=== PATIENT | female | born 1965 | race Caucasian/White ===

== ENCOUNTER → 2017-01-09 | Outpatient (CLI) | payer BC ==
[2016-07-10 10:06] VITALS: BP 121/73
--- NOTE | 2017-01-09 18:58 | RAD ---
THORACIC SPINE RADIOGRAPHS CLINICAL HISTORY: 51-year-old female with history of thoracic lesion. COMPARISON: None. FINDINGS: 2 views of the thoracic spine were obtained. No acute fracture or malalignment with mild d egenerative change. The cervicothoracic junction is visualized on frontal radiographs only. Consider ing the limitations, vertebral body height and alignment are maintained. IMPRESSION: No compression deformity or malalignment on screening thoracic spine radiographs. Reported By:
--- NOTE | 2017-01-09 19:05 | RAD ---
HISTORY: 51-year-old female with history of thoracic lesion. Study: Three views cervical spine. Comparison: None. Findings: AP and lateral radiographs of the cervical spine demonstrate normal alignment from the craniocervica l junction to the level of C7. multilevel degenerative change with loss of disc space at C5-6 , ant erior osteophytosis and uncovertebral joint hypertrophy. No fracture or malalignment. The central ca nal appears patent without posterior element abnormality. No prevertebral soft tissue swelling can be identified. The odontoid appears intact. The lateral masses of C1 align with the body of C2. IMPRESSION: 1. Mild multilevel degenerative change without fracture or malalignment. Reported By:
== END ==
LOC: RAD 15:32
PROVIDERS: ATTEND Internal Medicine
DX: S24.119A Complete lesion at unspecified level of thoracic spinal cord, initial encounter (principal)
CPT/HCPCS: 72040; 72072

== ENCOUNTER → 2017-01-16 | Outpatient (CLI) | payer BC ==
[2016-07-10 10:06] VITALS: BP 121/73
--- NOTE | 2017-01-16 15:49 | MRI ---
HISTORY: Paresthesias of skin, mid back pain Study: MRI thoracic spine without contrast Comparison: Radiograph 01/09/2017 Technique: Multiplanar multi-sequence MRI of the thoracic spine was obtained with standard [facility] protocol. Findings: The thoracic spine demonstrates normal alignment. No abnormal cord or marrow signal identified. The re are some scattered Tarlov cyst noted bilaterally. Probable hemangioma within the T4 vertebral bod y. Vertebral body heights are preserved. There is multilevel disc desiccation and spondylosis. There is a prominent posterior osteophyte complex protruding centrally at T11-T12 causing effacement of t he ventral thecal sac and dorsal displacement of the cord without evidence of compression or edema w ithin the cord itself. No spinal or foraminal stenosis identified. IMPRESSION: 1. Thoracic spondylosis most prominent at T11-T12 where there is a posterior osteophyte causing effa cement of the ventral thecal sac and dorsal displacement of the cord. There is no evidence of cord e dana or compression. No significant spinal or foraminal stenosis identified. Reported By:
--- NOTE | 2017-01-20 14:39 | MRI ---
HISTORY: Neck pain and cervical radiculopathy. Noncontrast MRI examination of the cervical spine. Technique: Sagittal T1, sagittal T2, axial T2 weighted images were obtained. Findings: Alignment of the cervical spine is maintained. There is moderate spondylosis and facet DJD seen from C3-C7 with multilevel disc osteophyte complexes and diffuse cervical disc desiccation. Th ere is no evidence for an acute fracture or subluxation. No aggressive bone marrow lesion is seen. T here is no evidence for cerebral tonsillar ectopia. The posterior elements appear diffusely intact. There is no evidence for cord expansion, cord edema, or abnormal cord signal. No intrathecal mass le sions or intrathecal hemorrhage is seen. There are bilateral T2 intense cystic lesions measuring rou ghly 7-8 millimeters seen emanating from the nerve roots at the level of C7-T1 and T1-T2 which most likely reflect benign thoracic paraspinal cysts. C2 -- C3: No significant disc pathology or foraminal/spinal canal stenosis. C3 -- C4: No significant disc pathology or foraminal/spinal canal stenosis. C4 -- C5: Broad-based, posterior, disc osteophyte complex which combines with mild facet DJD to crea te mild central spinal canal stenosis and mild bilateral foraminal narrowing. C5 -- C6: Broad-based, posterior, disc osteophyte complex which combines with mild facet DJD to crea te mild central spinal canal stenosis and mild bilateral foraminal narrowing. C6 -- C7: Broad-based, posterior, disc osteophyte complex which combines with mild facet DJD to crea te mild central spinal canal stenosis and mild bilateral foraminal narrowing. C7 -- T1: No significant disc pathology or foraminal/spinal canal stenosis. IMPRESSION: Mild cervical spondylotic change with C4-C7 central disc osteophyte complexes and facet DJD which cr eates mild foraminal and spinal canal narrowing at these levels, as detailed above. No evidence for cervical cord myelomalacia, however. Bilateral T2 intense cystic lesions measuring roughly 7-8 raul meters seen emanating from the nerve roots at the level of C7-T1 and T1-T2 which most likely reflect benign thoracic paraspinal cysts. Reported By:
== END ==
LOC: RAD 12:36
PROVIDERS: ATTEND Internal Medicine
DX: M54.2 Cervicalgia (principal); S24.119A Complete lesion at unspecified level of thoracic spinal cord, initial encounter; R20.2 Paresthesia of skin; M43.04 Spondylolysis, thoracic region; M50.321 Other cervical disc degeneration at C4-C5 level; M50.322 Other cervical disc degeneration at C5-C6 level; M50.323 Other cervical disc degeneration at C6-C7 level
CPT/HCPCS: 72141; 72146

== ENCOUNTER 2017-02-24 18:46 | Observation (INO) | payer BC ==
[2017-02-24 19:04] VITALS: BMI 27.4
--- NOTE | 2017-02-24 19:12 | DR.GENAD ---
HPI - PCP Primary Care Physician: vicky - HPI Comment HPI Comment: EPISODE OF HEART FLUTTER AT HOME THAT CAUSE PATIENT TO BE WEAK AND DIZZY AND HAVE NEAR SYNCOPAL FEELING. GRADUALLY IMPROVE. CHEST PRESSURE LEFT CHEST. HISTORY HYPOTHYROIDISM. MED CURRENTLY ADJUSTING FOR ADEQUATE THERAPEUTIC LEVEL. - Complaint/Symptoms Chief Complaint Doctors Comments: HEART FLUTTER. Chief Complaint:: pt states" my heart fluttering an i get real anxious when it happens. i ffel like it goes bump bump pause it worries me " - Nurses notes reviewed Nurses Notes Review: Yes - Source History Provided: Patient - Mode of Arrival Mode of Arrival: Ambulatory - Timing Onset of Chief Complaint: 02/24/17 Came on: Suddenly - Duration Duration: Since Onset Duration: Hours - Severity Severity: Moderate PMH - PMH Past Medical History: Yes Past Medical History: Hypothyroidism Past Surgical History: Yes Surgical History: Hysterectomy - Family History History of Family Medical Conditions: Yes Family Medical History: Diabetes Mellitus - Social History Alcohol Use: Occasionally Do you use any recreational Drugs:: No Lives With: Family Lives Where: Home - infectious screening In the last 2 months have you had wt loss of >10#?: NO Have you had fever, night sweats or hemotysis?: No Have you traveled outside the country in the last 6 months?: No Isolation: Standard ROS - Review of Systems Constitutional: Weakness, Fatigue. negative: Chills, Diaphoresis, Fever Eyes: No Symptoms Reported. negative: Eye Pain, Discharge ENTM: No Symptoms Reported. negative: Ear Pain, Nose Discharge, Nose Congestion , Throat Pain Respiratoy: Short of Breath. negative: Productive Cough, Non-Productive Cough, Wheezing, Hemoptysis Cardiovascular: Chest Pain, Palpitations. negative: Edema, Syncope Gastrointestinal/Abdominal: Nausea. negative: Abdominal Pain, Constipation, Diarrhea, Vomiting, Food Intolerance Genitourinary: No Symptoms Reported. negative: Dysuria, Frequency, Hematuria Neurological: Weakness, Dizziness. negative: Headache Musculoskeletal: Muscle Pain Integumentary: No Symptoms Reported Hematologic/Lymphatic: No Symptoms Reported Endocrine: No Symptoms Reported All Other Systems: Reviewed and Negative PE - Vital Signs Vitals: Temperature 98 F Pulse Rate 82 Respiratory Rate 20 Blood Pressure 153/74 O2 Sat by Pulse Oximetry 100 - General Limitations: No Limitations General Appearance: Alert - Head Head Exam: Normal Inspection - Eyes Eye exam: Normal Appearance - ENT ENT Exam: Normal External Ear Exam External Ear Exam: Normal External Inspection TM/Canal Exam: Bilateral Normal Nose Exam: Normal Nose Exam Mouth Exam: Normal Inspection Throat Exam: Normal Inspection - Neck Neck Exam: Trachea Midline. negative: Tenderness, Meningismus, Lymphadenopathy - Chest Chest Inspection: Symmetric Chest Wall Rise - Respiratory Respiratory Exam: Normal Lung Sounds Bilat Respiratory Exam: Bilateral Clear to Auscultation - Cardiovascular Cardiovascular Exam: Regular Rate, Normal Rhythm, Normal Heart Sounds - Abdominal Exam Abdominal Exam: Normal Bowel Sounds, Soft. negative: Tenderness - Extremities Extremities Exam: Normal Inspection - Back Back Exam: Normal Inspection - Neurologic Neurological Exam: Alert, Oriented X3, CN II-XII Intact, Normal Gait, Reflexes Normal. negative: Motor Sensory Deficit - Psychiatric Psychiatric Exam: Anxious - Skin Skin Exam: Normal Color MDM - Differential Diagnosis Differential Diagnosis: HEART FLUTTER, HYPOTHYROIDISM Course - Consultation Consultation Comments: DISCUSS PATIENT WITH DR. SPRAGUE. HE WILL ADMIT PATIENT. - Education/Counseling Education/Counseling: Patient, Education Educated On: Diagnosis ROR - Labs Reviewed Laboratory Results Reviewed?: Yes Result Diagrams: 02/25/17 06:05 02/25/17 06:05 Laboratory: WBC 6.5 X10^3/uL (3.6-10.0) 02/24/17 19:18 RBC 4.70 X10^6/uL (3.5-5.4) 02/24/17 19:18 Hgb 14.2 g/dL (12.0-16.0) 02/24/17 19:18 Hct 42.3 % (36.0-47.0) 02/24/17 19:18 MCV 90.0 fL (80.0-100.0) 02/24/17 19:18 MCH 30.2 pg (27.0-34.0) 02/24/17 19:18 MCHC 33.6 g/dL (33.0-35.0) 02/24/17 19:18 RDW 12.1 % (11.6-16.5) 02/24/17 19:18 Plt Count 252 X10^3/uL (150.0-450.0) 02/24/17 19:18 MPV 8.8 fL (7.4-11.0) 02/24/17 19:18 Neut % 42.6 % (42.0-75.0) 02/24/17 19:18 Lymph % 46.5 % (21.0-51.0) 02/24/17 19:18 Mcleod % 8.3 % (0.0-13.0) 02/24/17 19:18 Eos % 1.6 % (0.9-2.9) 02/24/17 19:18 Baso % 1.0 % (0.2-1.0) 02/24/17 19:18 Neut # 2.8 x10^3/uL (2.2-4.8) 02/24/17 19:18 Lymph # 3.0 X10^3/uL (1.3-2.9) H 02/24/17 19:18 Mcleod # 0.5 x10^3/uL (0.3-0.8) 02/24/17 19:18 Eos # 0.1 x10^3/uL (0.0-0.2) 02/24/17 19:18 Baso # 0.1 X10^3/uL (0.0-0.1) 02/24/17 19:18 Absolute Nucleated RBC 0.1 /100WBC 02/24/17 19:18 INR Target Range - 02/24/17 19:18 INR 0.93 (0.8-1.3) 02/24/17 19:18 PTT 28.9 SECONDS (22.9-36.5) 02/24/17 19:18 PTT Comment - 02/24/17 19:18 D-Dimer < 100 ng/mL (0-400) 02/24/17 19:18 Sodium 143 mmol/L (136-145) 02/24/17 19:18 Corrected Sodium TNP 02/24/17 19:18 Potassium 3.7 mmol/L (3.5-5.1) 02/24/17 19:18 Chloride 105 mmol/L (98-107) 02/24/17 19:18 Carbon Dioxide 28.7 mmol/L (21-32) 02/24/17 19:18 BUN 14 mg/dL (7-18) 02/24/17 19:18 Creatinine 0.79 mg/dL (0.55-1.02) 02/24/17 19:18 Est GFR (MDRD) Af Amer > 60 (>60) 02/24/17 19:18 Est GFR (MDRD) Non-Af > 60 (>60) 02/24/17 19:18 Glucose 108 mg/dL (65-99) H 02/24/17 19:18 Calcium 9.2 mg/dL (8.5-10.1) 02/24/17 19:18 Corrected Calcium TNP 02/24/17 19:18 Magnesium 1.9 mg/dL (1.7-2.9) 02/24/17 19:18 Total Bilirubin 0.40 mg/dL (0.2-1.0) 02/24/17 19:18 AST 18 Units/L (15-37) 02/24/17 19:18 ALT 23 Units/L (12-78) 02/24/17 19:18 Alkaline Phosphatase 93 Units/L (46-116) 02/24/17 19:18 Creatine Kinase 59 Units/L (26-192) 02/24/17 19:18 CK-MB (CK-2) < 1.0 ng/mL (0-4.0) 02/24/17 19:18 CK/CKMB % Calc 1.7 % (<4) 02/24/17 19:18 Troponin I < 0.02 ng/mL (0-1.5) 02/24/17 19:18 Total Protein 7.7 g/dL (6.4-8.2) 02/24/17 19:18 Albumin 4.1 g/dL (3.4-5.0) 02/24/17 19:18 Globulin 3.6 g/dL (2.5-4.5) 02/24/17 19:18 Albumin/Globulin Ratio 1.1 Ratio (1.1-2.1) 02/24/17 19:18 TSH 3rd Generation 0.376 uIU/mL (0.358-3.74) 02/24/17 19:18 - XRAY XRAY Interpreted by: Radiologist XRAY Findings: REPORT NOTED - EKG Rhythm: NSR (EKG NOTED) - Diagnosis Discharge Problem: Heart flutter, ventricular, Near syncope Hypothyroidism Qualifiers: Hypothyroidism type: unspecified Qualified Code(s): E03.9 - Hypothyroidism, unspecified - Discharge Plan Disposition: ADMITTED INPATIENT Condition: Stable - Follow ups/Referrals - Instructions
[2017-02-24 19:43] LABS: BASOPHILS # (AUTO) 0.1 X10^3/uL (0.0-0.1); EOSINOPHILS # (AUTO) 0.1 x10^3/uL (0.0-0.2); EOSINOPHILS % (AUTO) 1.6 % (0.9-2.9); HEMATOCRIT 42.3 % (36.0-47.0); HEMOGLOBIN 14.2 g/dL (12.0-16.0); LYMPHOCYTES % (AUTO) 46.5 % (21.0-51.0); MEAN CORPUSCULAR HEMOGLOBIN 30.2 pg (27.0-34.0); MEAN CORPUSCULAR HGB CONC 33.6 g/dL (33.0-35.0); MEAN PLATELET VOLUME 8.8 fL (7.4-11.0); MONOCYTES # (AUTO) 0.5 x10^3/uL (0.3-0.8); MONOCYTES % (AUTO) 8.3 % (0.0-13.0); NEUTROPHILS # (AUTO) 2.8 x10^3/uL (2.2-4.8); NEUTROPHILS % (AUTO) 42.6 % (42.0-75.0); PLATELET COUNT 252 X10^3/uL (150.0-450.0); RED CELL DISTRIBUTION WIDTH 12.1 % (11.6-16.5); WHITE BLOOD COUNT 6.5 X10^3/uL (3.6-10.0)
[2017-02-24 19:49] LABS: BLOOD UREA NITROGEN 14 mg/dL (7-18); CALCIUM 9.2 mg/dL (8.5-10.1); CARBON DIOXIDE 28.7 mmol/L (21-32); CHLORIDE 105 mmol/L (98-107); CREATININE 0.79 mg/dL (0.55-1.02); GLUCOSE 108 mg/dL (65-99); SODIUM 143 mmol/L (136-145); TROPONIN I < 0.02 ng/mL (0-1.5); eGFR BLACK RACES > 60 (>60); eGFR NON BLACK RACES > 60 (>60)
[2017-02-24 19:53] LABS: ALANINE AMINOTRANSFERASE 23 Units/L (12-78); ALBUMIN 4.1 g/dL (3.4-5.0); ALKALINE PHOSPHATASE 93 Units/L (46-116); ASPARTATE AMINO TRANSFERASE 18 Units/L (15-37); CKMB % 1.7 % (<4); CREATINE KINASE 59 Units/L (26-192); CREATINE KINASE MB < 1.0 ng/mL (0-4.0); MAGNESIUM 1.9 mg/dL (1.7-2.9); TOTAL PROTEIN 7.7 g/dL (6.4-8.2)
[2017-02-24 20:10] LABS: D DIMER < 100 ng/mL (0-400)
[2017-02-24] MEDS ORDERED: NS 1000 ML 1,000 ML IV SCH (22:00)
[2017-02-24] MEDS ORDERED: NS 1000 ML 1,000 ML ONE (22:31)
[2017-02-25 02:26] LABS: CKMB % 2.2 % (<4); CREATINE KINASE 46 Units/L (26-192); CREATINE KINASE MB < 1.0 ng/mL (0-4.0); TROPONIN I < 0.02 ng/mL (0-1.5)
--- NOTE | 2017-02-25 02:46 | RAD ---
Chest AP portable Indication: Chest pain. Findings: There is no pneumothorax or effusion. There is no consolidation. Heart size is normal. Impression: No acute chest process. Reported By:
[2017-02-25 06:56] LABS: BASOPHILS # (AUTO) 0.1 X10^3/uL (0.0-0.1); EOSINOPHILS # (AUTO) 0.1 x10^3/uL (0.0-0.2); EOSINOPHILS % (AUTO) 1.5 % (0.9-2.9); HEMATOCRIT 42.6 % (36.0-47.0); HEMOGLOBIN 14.4 g/dL (12.0-16.0); LYMPHOCYTES # (AUTO) 2.6 X10^3/uL (1.3-2.9); LYMPHOCYTES % (AUTO) 42.7 % (21.0-51.0); MEAN CORPUSCULAR HEMOGLOBIN 30.3 pg (27.0-34.0); MEAN CORPUSCULAR HGB CONC 33.9 g/dL (33.0-35.0); MEAN CORPUSCULAR VOLUME 89.5 fL (80.0-100.0); MEAN PLATELET VOLUME 9.1 fL (7.4-11.0); MONOCYTES # (AUTO) 0.5 x10^3/uL (0.3-0.8); NEUTROPHILS # (AUTO) 2.7 x10^3/uL (2.2-4.8); NEUTROPHILS % (AUTO) 45.8 % (42.0-75.0); PLATELET COUNT 234 X10^3/uL (150.0-450.0); RED BLOOD COUNT 4.76 X10^6/uL (3.5-5.4); RED CELL DISTRIBUTION WIDTH 12.4 % (11.6-16.5)
[2017-02-25 07:51] LABS: ALANINE AMINOTRANSFERASE 23 Units/L (12-78); ALBUMIN 3.7 g/dL (3.4-5.0); ALKALINE PHOSPHATASE 87 Units/L (46-116); ASPARTATE AMINO TRANSFERASE 21 Units/L (15-37); BLOOD UREA NITROGEN 13 mg/dL (7-18); CARBON DIOXIDE 27.3 mmol/L (21-32); CHLORIDE 107 mmol/L (98-107); CHOL/HDL RATIO 3.1 (0.0-5.0); CHOLESTEROL 211 mg/dL (0-200); CREATININE 0.72 mg/dL (0.55-1.02); GLUCOSE 100 mg/dL (65-99); HDL CHOLESTEROL 68 mg/dL (40-60); SODIUM 144 mmol/L (136-145); TOTAL PROTEIN 7.2 g/dL (6.4-8.2); TRIGLYCERIDES 79 mg/dL (0-150); eGFR BLACK RACES > 60 (>60); eGFR NON BLACK RACES > 60 (>60)
[2017-02-25 08:14] VITALS: BP 130/77
[2017-02-25 08:15] LABS: CREATINE KINASE 50 Units/L (26-192); CREATINE KINASE MB < 1.0 ng/mL (0-4.0); TROPONIN I < 0.02 ng/mL (0-1.5)
== END 2017-02-25 11:18 | disposition home or self-care (01) ==
LOC: ER 18:59 → OBS 21:22
PROVIDERS: ADMIT Internal Medicine; ATTEND Internal Medicine
DX: I49.8 Other specified cardiac arrhythmias (principal); R55 Syncope and collapse; E03.8 Other specified hypothyroidism; R07.89 Other chest pain; F41.8 Other specified anxiety disorders; R94.31 Abnormal electrocardiogram [ECG] [EKG]; Z79.899 Other long term (current) drug therapy; E78.00 Pure hypercholesterolemia, unspecified
CPT/HCPCS: 36415; 71010; 80053; 80061; 82550; 82553; 83735; 84439; 84443; 84484; 85025; 85378; 85610; 85730; 93005; 94760; 96365; 99284; A4222; G0378

== ENCOUNTER → 2017-03-17 | Outpatient (CLI) | payer BC ==
[2017-02-25 08:14] VITALS: BP 130/77
--- NOTE | 2017-03-17 10:39 | US ---
Examination: Abdominal ultrasound. Clinical History: Right upper quadrant pain, nausea, positive Flores's sign. Technique: Real-time grayscale ultrasound was used to evaluate the upper abdomen. Comparison: None available. Findings: There is a wall echo shadow complex associated with the gallbladder fossa, probably representing a g allbladder packed with gallstones. A loop of bowel overlying the gallbladder fossa could also give t his appearance. A CT of the abdomen could be obtained more complete evaluation of the findings, if c linically indicated. The common bile duct measures 3 mm in diameter and is within normal limits. No intrahepatic biliary ductal dilatation is noted. The liver is normal in echogenicity with no focal mass. The pancreas is obscured by bowel gas and could not be adequately evaluated. The right kidney measures 10.6 cm in length and is normal in echogenicity with no focal mass, hydron ephrosis or nephrolithiasis noted. Impression: 1. There is a wall echo shadow complex associated with the gallbladder fossa, probably representing a gallbladder packed with gallstones. A loop of bowel overlying the gallbladder fossa could also giv e this appearance. A CT of the abdomen could be obtained more complete evaluation of the findings, i f clinically indicated. Reported By:
== END ==
LOC: RAD 09:19
PROVIDERS: ATTEND Internal Medicine
DX: R10.11 Right upper quadrant pain (principal); R11.0 Nausea
CPT/HCPCS: 76705

== ENCOUNTER → 2017-03-26 | Outpatient (CLI) | payer BC ==
[2017-02-25 08:14] VITALS: BP 130/77
--- NOTE | 2017-03-26 11:40 | NM ---
HISTORY: Right upper quadrant pain. Study: Nuclear medicine HIDA scan without ejection fraction Comparison: Right upper quadrant ultrasound dated March 17, 2017. Technique: Multiple scintigraphic images of the abdomen were obtained the intravenous administration of 5.5 mCi of technetium labeled Choletec. Ejection fraction was not performed. Findings: Homogeneous uptake of radiotracer is seen throughout the liver. This intrabiliary ductal system is observed normally. The common hepatic and common bile duct grossly appear unremarkable with normal biliary-bowel transit. The gallbladder is not seen after 60 min of imaging. IMPRESSION: 1. The gallbladder was not seen after 60 min of imaging. This is consistent with acute cholecystitis . 2. Remaining exam is unremarkable. Reported By:
== END | disposition home or self-care (01) ==
LOC: RAD 08:58
PROVIDERS: ATTEND Internal Medicine
DX: R10.11 Right upper quadrant pain (principal); R11.0 Nausea
CPT/HCPCS: 78226

== ENCOUNTER → 2017-04-02 | Outpatient (CLI) | payer BC ==
[2017-04-02 10:18] LABS: T4 (THYROXINE) 10.9 ug/dL (4.7-13.3); TSH (3RD GENERATION) 0.126 uIU/mL (0.358-3.74)
== END ==
LOC: LAB 09:22
PROVIDERS: ATTEND Internal Medicine
DX: E03.8 Other specified hypothyroidism (principal)
CPT/HCPCS: 36415; 84436; 84443

== ENCOUNTER 2017-04-11 08:22 | Day surgery (SDC) | payer BC ==
[2017-04-11] MEDS ORDERED: NS 1000 ML 1,000 ML ONE (08:32)
[2017-04-11] MEDS: CLEOCIN VIAL 600 MG ONE ×2 (09:21→11:00)
[2017-04-11 09:36] LABS: BASOPHILS # (AUTO) 0.1 X10^3/uL (0.0-0.1); BASOPHILS % (AUTO) 2.7 % (0.2-1.0); EOSINOPHILS # (AUTO) 0.1 x10^3/uL (0.0-0.2); EOSINOPHILS % (AUTO) 1.7 % (0.9-2.9); HEMOGLOBIN 14.2 g/dL (12.0-16.0); LYMPHOCYTES # (AUTO) 1.8 X10^3/uL (1.3-2.9); LYMPHOCYTES % (AUTO) 44.1 % (21.0-51.0); MEAN CORPUSCULAR HEMOGLOBIN 29.9 pg (27.0-34.0); MEAN CORPUSCULAR HGB CONC 34.5 g/dL (33.0-35.0); MEAN CORPUSCULAR VOLUME 86.6 fL (80.0-100.0); MEAN PLATELET VOLUME 8.9 fL (7.4-11.0); MONOCYTES # (AUTO) 0.4 x10^3/uL (0.3-0.8); MONOCYTES % (AUTO) 9.2 % (0.0-13.0); NEUTROPHILS # (AUTO) 1.7 x10^3/uL (2.2-4.8); NEUTROPHILS % (AUTO) 42.3 % (42.0-75.0); PLATELET COUNT 207 X10^3/uL (150.0-450.0); RED BLOOD COUNT 4.74 X10^6/uL (3.5-5.4); RED CELL DISTRIBUTION WIDTH 12.2 % (11.6-16.5); WHITE BLOOD COUNT 4.1 X10^3/uL (3.6-10.0)
[2017-04-11 09:48] LABS: ALANINE AMINOTRANSFERASE 21 Units/L (12-78); ALBUMIN 3.7 g/dL (3.4-5.0); ALKALINE PHOSPHATASE 75 Units/L (46-116); ASPARTATE AMINO TRANSFERASE 16 Units/L (15-37); BLOOD UREA NITROGEN 10 mg/dL (7-18); CALCIUM 8.9 mg/dL (8.5-10.1); CARBON DIOXIDE 27.2 mmol/L (21-32); CHLORIDE 105 mmol/L (98-107); CREATININE 0.72 mg/dL (0.55-1.02); GLUCOSE 95 mg/dL (65-99); SODIUM 140 mmol/L (136-145); TOTAL PROTEIN 7.1 g/dL (6.4-8.2); eGFR BLACK RACES > 60 (>60); eGFR NON BLACK RACES > 60 (>60)
[2017-04-11] MEDS ORDERED: XYLOCAINE 1 % (PLAIN) ONE (11:05)
[2017-04-11] MEDS ORDERED: MARCAINE 0.25% WITH EPI IJ ONE (11:05)
[2017-04-11] MEDS ORDERED: DILAUDID INJ IVP PRN (12:35)
[2017-04-11] MEDS ORDERED: PHENERGAN INJ 25 MG IVP PRN (12:35)
[2017-04-11] MEDS ORDERED: REGLAN INJ 10 MG VIAL IVP PRN (12:35)
[2017-04-11] MEDS ORDERED: BENADRYL INJ 50 MG VIAL IVP PRN (12:35)
[2017-04-11] MEDS ORDERED: NORCURON INJ 10 MG VIAL ONE (13:01)
[2017-04-11] MEDS ORDERED: DIPRIVAN VIAL ONE (13:01)
[2017-04-11] MEDS ORDERED: ROBINUL ONE (13:01)
[2017-04-11] MEDS ORDERED: ZOFRAN INJ 4 MG VIAL ONE (13:01)
[2017-04-11] MEDS ORDERED: VERSED ONE (13:01)
[2017-04-11] MEDS ORDERED: NEOSTIGMINE INJ ONE (13:01)
[2017-04-11] MEDS ORDERED: ULTANE GAS IN ONE (13:01)
[2017-04-11] MEDS ORDERED: QUELICIN (OR ANECTINE) ONE (13:01)
[2017-04-11] MEDS ORDERED: NORCO 5/325 MG TAB ONE (13:28)
[2017-04-11 14:37] VITALS: BP 138/62
== END 2017-04-11 14:10 | disposition home or self-care (01) ==
LOC: SURG1 08:22
PROVIDERS: ATTEND Student in an Organized Health Care Education/Training Program
PROC: 0FT44ZZ Resection of Gallbladder, Percutaneous Endoscopic Approach (ICD-10-PCS; principal; 2017-04-11 10:45)
DX: K82.8 Other specified diseases of gallbladder (principal); K81.1 Chronic cholecystitis; K80.80 Other cholelithiasis without obstruction
CPT/HCPCS: 36415; 80053; 85025; A4216; A4222; S0020; J0330; J1170; J2001; J2250; J2405; J2550; J2710; J3490; S0077

== ENCOUNTER → 2017-05-29 | Outpatient (CLI) | payer BC ==
[2017-05-29 15:48] LABS: TSH (3RD GENERATION) 0.163 uIU/mL (0.358-3.74)
== END ==
LOC: LAB 15:01
PROVIDERS: ATTEND Internal Medicine
DX: E03.8 Other specified hypothyroidism (principal)
CPT/HCPCS: 36415; 84436; 84443

== ENCOUNTER 2017-07-06 16:57 | Emergency (ER) | payer BC ==
[2017-07-06 17:01] VITALS: BMI 25.0
--- NOTE | 2017-07-06 17:12 | DR.GENAD ---
HPI - PCP Primary Care Physician: vicky - HPI Comment HPI Comment: SIMILAR SYMTOM IN THE PAST WITH WORK UP. THE IRREGULAR HEART RATE ALWAYS RESOLVE ON PRESENTATION. DURING EPISODES, PATIENT IS DIZZY AND HAVE NEAR SYNCOPAL FEELING WITH CHEST DISCOMFORT. CURRENT, PATIENT STILL DONT FEEL HER USUAL SELF. DENIES FEVER. - Complaint/Symptoms Chief Complaint Doctors Comments: CHEST PAIN, SKIP BEATS TIMES HOURS. Chief Complaint:: patient stated she has a uncomfortable feeling in her chest and she stated it feels like her heart is skipping a beat. - Nurses notes reviewed Nurses Notes Review: Yes - Source History Provided: Patient - Mode of Arrival Mode of Arrival: Ambulatory - Timing Onset of Chief Complaint: 06/13/17 Came on: Gradually - Duration Duration: Days - Severity Severity: Moderate PMH - PMH Past Medical History: Yes Past Medical History: Hypothyroidism Past Surgical History: Yes Surgical History: Hysterectomy - Family History History of Family Medical Conditions: Yes Family Medical History: Diabetes Mellitus - Social History Does patient currently use any type of tobacco product: No Have you used tobacco products in the last 12 months: No Type of Tobacco Use: None Does any household member use tobacco: Yes Alcohol Use: Rarely Do you use any recreational Drugs:: No Lives With: Family Lives Where: Home - infectious screening In the last 2 months have you had wt loss of >10#?: NO Have you had fever, night sweats or hemotysis?: No Have you traveled outside the country in the last 6 months?: No Isolation: Standard ROS - Review of Systems Constitutional: Weakness, Fatigue. negative: Chills, Fever Eyes: No Symptoms Reported. negative: Eye Pain, Discharge ENTM: No Symptoms Reported. negative: Ear Pain, Nose Discharge, Nose Congestion , Throat Pain Respiratoy: No Symptoms Reported, Short of Breath. negative: Non-Productive Cough, Wheezing, Hemoptysis Cardiovascular: No Symptoms Reported, Chest Pain. negative: Syncope (NEAR SYNCOPAL FEELING.) Genitourinary: No Symptoms Reported. negative: Dysuria, Frequency, Hematuria Neurological: No Symptoms Reported, Weakness, Dizziness. negative: Headache Musculoskeletal: No Symptoms Reported, Muscle Pain Integumentary: No Symptoms Reported. negative: Change in Color Hematologic/Lymphatic: No Symptoms Reported Endocrine: No Symptoms Reported All Other Systems: Reviewed and Negative PE - Vital Signs Vitals: Pulse Rate [Left Brachial] 65 Pulse Rate 79 Respiratory Rate 18 Blood Pressure [Left Arm] 132/70 Blood Pressure 150/100 O2 Sat by Pulse Oximetry 99 - General Limitations: No Limitations General Appearance: Alert - Head Head Exam: Normal Inspection - Eyes Eye exam: Normal Appearance - ENT ENT Exam: Normal External Ear Exam External Ear Exam: Normal External Inspection TM/Canal Exam: Bilateral Normal Nose Exam: Normal Nose Exam Mouth Exam: Normal Inspection Throat Exam: Normal Inspection - Neck Neck Exam: Normal Inspection - Chest Chest Inspection: Symmetric Chest Wall Rise - Respiratory Respiratory Exam: Normal Lung Sounds Bilat Respiratory Exam: Bilateral Clear to Auscultation - Cardiovascular Cardiovascular Exam: Regular Rate, Normal Rhythm, Normal Heart Sounds - Abdominal Exam Abdominal Exam: Normal Inspection - Extremities Extremities Exam: Normal Inspection - Back Back Exam: Normal Inspection - Neurologic Neurological Exam: Alert, Oriented X3 - Psychiatric Psychiatric Exam: Anxious - Skin Skin Exam: Normal Color MDM - Additional Information Additional Information Obtained From: Family - Differential Diagnosis Differential Diagnosis: NEAR SYNPAL FEELING, CHEST PAIN, IRREGULAR HEART RATE Course - Treatment Treatment: SEE ORDERS. - Consultation Consultation Comments: DISCUSS WITH DR. VELASQUEZ. PATIENT TO SEE DR. SPRAGUE IN AM. - Education/Counseling Education/Counseling: Patient, Family, Education Educated On: Diagnosis, Needs for Follow Up ROR - Labs Reviewed Laboratory Results Reviewed?: Yes Result Diagrams: 07/06/17 17:20 07/06/17 17:20 Laboratory: WBC 5.7 X10^3/uL (3.6-10.0) 07/06/17 17:20 RBC 5.14 X10^6/uL (3.5-5.4) 07/06/17 17:20 Hgb 15.3 g/dL (12.0-16.0) 07/06/17 17:20 Hct 44.6 % (36.0-47.0) 07/06/17 17:20 MCV 86.8 fL (80.0-100.0) 07/06/17 17:20 MCH 29.7 pg (27.0-34.0) 07/06/17 17:20 MCHC 34.2 g/dL (33.0-35.0) 07/06/17 17:20 RDW 12.6 % (11.6-16.5) 07/06/17 17:20 Plt Count 255 X10^3/uL (150.0-450.0) 07/06/17 17:20 MPV 9.0 fL (7.4-11.0) 07/06/17 17:20 Neut % 43.8 % (42.0-75.0) 07/06/17 17:20 Lymph % 45.9 % (21.0-51.0) 07/06/17 17:20 Sierra % 7.7 % (0.0-13.0) 07/06/17 17:20 Eos % 1.4 % (0.9-2.9) 07/06/17 17:20 Baso % 1.2 % (0.2-1.0) H 07/06/17 17:20 Neut # 2.5 x10^3/uL (2.2-4.8) 07/06/17 17:20 Lymph # 2.6 X10^3/uL (1.3-2.9) 07/06/17 17:20 Sierra # 0.4 x10^3/uL (0.3-0.8) 07/06/17 17:20 Eos # 0.1 x10^3/uL (0.0-0.2) 07/06/17 17:20 Baso # 0.1 X10^3/uL (0.0-0.1) 07/06/17 17:20 Absolute Nucleated RBC 0.0 /100WBC 07/06/17 17:20 INR Target Range - 07/06/17 17:20 INR 0.92 (0.8-1.3) 07/06/17 17:20 PTT 30.4 SECONDS (22.9-36.5) 07/06/17 17:20 PTT Comment - 07/06/17 17:20 D-Dimer < 100 ng/mL (0-400) 07/06/17 17:20 Sodium 141 mmol/L (136-145) 07/06/17 17:20 Corrected Sodium TNP 07/06/17 17:20 Potassium 3.2 mmol/L (3.5-5.1) L 07/06/17 17:20 Chloride 104 mmol/L (98-107) 07/06/17 17:20 Carbon Dioxide 26.4 mmol/L (21-32) 07/06/17 17:20 BUN 9 mg/dL (7-18) 07/06/17 17:20 Creatinine 0.85 mg/dL (0.55-1.02) 07/06/17 17:20 Est GFR (MDRD) Af Amer > 60 (>60) 07/06/17 17:20 Est GFR (MDRD) Non-Af > 60 (>60) 07/06/17 17:20 Glucose 88 mg/dL (65-99) 07/06/17 17:20 Calcium 9.5 mg/dL (8.5-10.1) 07/06/17 17:20 Corrected Calcium TNP 07/06/17 17:20 Magnesium 2.0 mg/dL (1.7-2.9) 07/06/17 17:20 Total Bilirubin 0.50 mg/dL (0.2-1.0) 07/06/17 17:20 AST 22 Units/L (15-37) 07/06/17 17:20 ALT 21 Units/L (12-78) 07/06/17 17:20 Alkaline Phosphatase 83 Units/L (46-116) 07/06/17 17:20 Creatine Kinase 72 Units/L (26-192) 07/06/17 17:20 CK-MB (CK-2) < 1.0 ng/mL (0-4.0) 07/06/17 17:20 CK/CKMB % Calc 1.4 % (<4) 07/06/17 17:20 Troponin I < 0.02 ng/mL (0-1.5) 07/06/17 17:20 Total Protein 8.3 g/dL (6.4-8.2) H 07/06/17 17:20 Albumin 4.4 g/dL (3.4-5.0) 07/06/17 17:20 Globulin 3.9 g/dL (2.5-4.5) 07/06/17 17:20 Albumin/Globulin Ratio 1.1 Ratio (1.1-2.1) 07/06/17 17:20 TSH 3rd Generation 0.304 uIU/mL (0.358-3.74) L 07/06/17 17:20 H. pylori IgG Antibody Positive (NEGATIVE) A 07/06/17 17:20 - XRAY XRAY Interpreted by: Radiologist XRAY Findings: REPORT DISCUSS WITH PATIENT. - EKG Rhythm: NSR (EKG NOTED) - Diagnosis Discharge Problem: Chest pain, Helicobacter pylori antibody positive, Abnormal TSH, Near syncope, Hypokalemia - Discharge Plan Disposition: 01 HOME, SELF-CARE Condition: Stable - Follow ups/Referrals Follow ups/Referrals: Miguelangel Sprague [Primary Care Provider] - 3 days - Instructions Instructions: Thyroid-Stimulating Hormone Test, Hypokalemia, Near-Syncope, Easy -to-Read, Helicobacter Pylori Antibodies Test Additional Instructions: RETURN TO ED IF WORSE. IRREGULAR HEART RATE AT HOME IS ALSO ONE OF YOUR DIAGNOSIS. HAVE DR. SPRAGUE TREAT POSITIVE H PYLORI TEST.
[2017-07-06 17:42] LABS: BASOPHILS # (AUTO) 0.1 X10^3/uL (0.0-0.1); BASOPHILS % (AUTO) 1.2 % (0.2-1.0); EOSINOPHILS # (AUTO) 0.1 x10^3/uL (0.0-0.2); EOSINOPHILS % (AUTO) 1.4 % (0.9-2.9); HEMATOCRIT 44.6 % (36.0-47.0); HEMOGLOBIN 15.3 g/dL (12.0-16.0); LYMPHOCYTES # (AUTO) 2.6 X10^3/uL (1.3-2.9); LYMPHOCYTES % (AUTO) 45.9 % (21.0-51.0); MEAN CORPUSCULAR HEMOGLOBIN 29.7 pg (27.0-34.0); MEAN CORPUSCULAR HGB CONC 34.2 g/dL (33.0-35.0); MEAN CORPUSCULAR VOLUME 86.8 fL (80.0-100.0); MONOCYTES # (AUTO) 0.4 x10^3/uL (0.3-0.8); MONOCYTES % (AUTO) 7.7 % (0.0-13.0); NEUTROPHILS # (AUTO) 2.5 x10^3/uL (2.2-4.8); NEUTROPHILS % (AUTO) 43.8 % (42.0-75.0); PLATELET COUNT 255 X10^3/uL (150.0-450.0); RED BLOOD COUNT 5.14 X10^6/uL (3.5-5.4); RED CELL DISTRIBUTION WIDTH 12.6 % (11.6-16.5); WHITE BLOOD COUNT 5.7 X10^3/uL (3.6-10.0)
--- NOTE | 2017-07-06 18:00 | RAD ---
HISTORY: Heart beating funny. Study: Portable chest. Comparison: Chest x-ray dated February 24, 2017. Findings: The trachea is midline. The cardiac silhouette is unremarkable. The lungs are clear without focal i nfiltrate or effusion. The bony thorax is unremarkable. IMPRESSION: No acute cardiopulmonary disease. Reported By:
[2017-07-06 18:04] LABS: ALANINE AMINOTRANSFERASE 21 Units/L (12-78); ALBUMIN 4.4 g/dL (3.4-5.0); ALKALINE PHOSPHATASE 83 Units/L (46-116); ASPARTATE AMINO TRANSFERASE 22 Units/L (15-37); BLOOD UREA NITROGEN 9 mg/dL (7-18); CALCIUM 9.5 mg/dL (8.5-10.1); CARBON DIOXIDE 26.4 mmol/L (21-32); CHLORIDE 104 mmol/L (98-107); CREATINE KINASE 72 Units/L (26-192); CREATINE KINASE MB < 1.0 ng/mL (0-4.0); CREATININE 0.85 mg/dL (0.55-1.02); SODIUM 141 mmol/L (136-145); TOTAL PROTEIN 8.3 g/dL (6.4-8.2); TROPONIN I < 0.02 ng/mL (0-1.5); eGFR BLACK RACES > 60 (>60); eGFR NON BLACK RACES > 60 (>60)
[2017-07-06 18:05] LABS: CKMB % 1.4 % (<4)
[2017-07-06] MEDS ORDERED: PROTONIX INJ 40 MG VIAL ONE (19:03)
[2017-07-06] MEDS ORDERED: POTASSIUM CHLORIDE LIQ 20 MEQ UDC ONE (19:03)
[2017-07-06] MEDS ORDERED: PROTONIX INJ 40 MG VIAL IVP ONE (19:05)
[2017-07-06] MEDS ORDERED: POTASSIUM CHLORIDE LIQ 20 MEQ UDC PO ONE (19:05)
[2017-07-06] MEDS ORDERED: LEVSIN/MAALOX/LIDOC VISC PO ONE (19:05)
[2017-07-06] MEDS ORDERED: LEVSIN/MAALOX/LIDOC VISC ONE (19:21)
[2017-07-06 19:29] VITALS: BP 132/70
== END 2017-07-06 19:29 | disposition home or self-care (01) ==
LOC: ER 16:57
DX: R07.89 Other chest pain (principal); B96.81 Helicobacter pylori [H. pylori] as the cause of diseases classified elsewhere; R94.6 Abnormal results of thyroid function studies; R55 Syncope and collapse; E87.6 Hypokalemia
CPT/HCPCS: 36415; 71010; 80053; 82550; 82553; 83735; 84443; 84484; 85025; 85378; 85610; 85730; 86677; 93005; 96365; 96374; 99283; A4222; C9113

== ENCOUNTER → 2017-08-26 | Outpatient (CLI) | payer BC ==
[2017-08-26 13:37] LABS: BLOOD UREA NITROGEN 11 mg/dL (7-18); CALCIUM 9.3 mg/dL (8.5-10.1); CARBON DIOXIDE 29.8 mmol/L (21-32); CHLORIDE 103 mmol/L (98-107); SODIUM 141 mmol/L (136-145); T4 (THYROXINE) 12.7 ug/dL (4.7-13.3); TSH (3RD GENERATION) 0.526 uIU/mL (0.358-3.74); eGFR BLACK RACES > 60 (>60); eGFR NON BLACK RACES > 60 (>60)
== END ==
LOC: LAB 12:29
PROVIDERS: ATTEND Internal Medicine
DX: E03.8 Other specified hypothyroidism (principal); E55.9 Vitamin D deficiency, unspecified; E87.6 Hypokalemia
CPT/HCPCS: 36415; 80048; 82306; 84436; 84443

== ENCOUNTER 2017-09-25 09:39 | Day surgery (SDC) | payer BC ==
[2017-09-25] MEDS ORDERED: D5 LR 1000 ML 1,000 ML IV ONE (10:14)
[2017-09-25] MEDS ORDERED: DIPRIVAN VIAL 20 ML ONE (11:24)
[2017-09-25 12:36] VITALS: BP 125/72
== END 2017-09-25 12:05 | disposition home or self-care (01) ==
LOC: SURG1 09:39
PROVIDERS: ATTEND Internal Medicine Gastroenterology
PROC: 0D757ZZ Dilation of Esophagus, Via Natural or Artificial Opening (ICD-10-PCS; principal; 2017-09-25 16:15)
PROC: 0DJ08ZZ Inspection of Upper Intestinal Tract, Via Natural or Artificial Opening Endoscopic (ICD-10-PCS; principal; 2017-09-25 16:15)
PROC: 0DB88ZX Excision of Small Intestine, Via Natural or Artificial Opening Endoscopic, Diagnostic (ICD-10-PCS; principal; 2017-09-25 16:15)
PROC: 0DB68ZX Excision of Stomach, Via Natural or Artificial Opening Endoscopic, Diagnostic (ICD-10-PCS; principal; 2017-09-25 16:15)
DX: R13.19 Other dysphagia (principal); R10.13 Epigastric pain; R11.0 Nausea; R10.12 Left upper quadrant pain; K21.9 Gastro-esophageal reflux disease without esophagitis; K20.8 Other esophagitis; K22.4 Dyskinesia of esophagus; K22.2 Esophageal obstruction; K29.60 Other gastritis without bleeding
CPT/HCPCS: A4217; J3490; J7120

== ENCOUNTER 2017-10-02 09:18 | Day surgery (SDC) | payer BC ==
[2017-10-02] MEDS ORDERED: D5 LR 1000 ML 1,000 ML IV ONE (09:36)
[2017-10-02] MEDS ORDERED: VERSED ONE (11:32)
[2017-10-02] MEDS ORDERED: DIPRIVAN VIAL 20 ML ONE (11:39)
[2017-10-02 12:11] VITALS: BP 113/55
== END 2017-10-02 12:14 | disposition home or self-care (01) ==
LOC: SURG1 09:18
PROVIDERS: ATTEND Internal Medicine Gastroenterology
PROC: 0DJD8ZZ Inspection of Lower Intestinal Tract, Via Natural or Artificial Opening Endoscopic (ICD-10-PCS; principal; 2017-10-02 13:30)
DX: Z12.11 Encounter for screening for malignant neoplasm of colon (principal); K64.0 First degree hemorrhoids
CPT/HCPCS: A4217; J2250; J3490; J7120

== ENCOUNTER → 2017-10-10 | Outpatient (CLI) | payer BC ==
[2017-10-02 12:11] VITALS: BP 113/55
[2017-10-10 07:28] LABS: BASOPHILS # (AUTO) 0.1 X10^3/uL (0.0-0.1); BASOPHILS % (AUTO) 0.9 % (0.2-1.0); EOSINOPHILS # (AUTO) 0.1 x10^3/uL (0.0-0.2); HEMATOCRIT 41.6 % (36.0-47.0); HEMOGLOBIN 14.2 g/dL (12.0-16.0); LYMPHOCYTES # (AUTO) 1.8 X10^3/uL (1.3-2.9); MEAN CORPUSCULAR HEMOGLOBIN 29.7 pg (27.0-34.0); MEAN CORPUSCULAR HGB CONC 34.2 g/dL (33.0-35.0); MEAN CORPUSCULAR VOLUME 86.7 fL (80.0-100.0); MEAN PLATELET VOLUME 8.6 fL (7.4-11.0); MONOCYTES # (AUTO) 0.4 x10^3/uL (0.3-0.8); MONOCYTES % (AUTO) 6.9 % (0.0-13.0); NEUTROPHILS # (AUTO) 3.4 x10^3/uL (2.2-4.8); NEUTROPHILS % (AUTO) 59.2 % (42.0-75.0); PLATELET COUNT 258 X10^3/uL (150.0-450.0); RED BLOOD COUNT 4.79 X10^6/uL (3.5-5.4); RED CELL DISTRIBUTION WIDTH 12.9 % (11.6-16.5); WHITE BLOOD COUNT 5.8 X10^3/uL (3.6-10.0)
[2017-10-10 07:43] LABS: ALANINE AMINOTRANSFERASE 23 Units/L (12-78); ALBUMIN 3.9 g/dL (3.4-5.0); ALKALINE PHOSPHATASE 77 Units/L (46-116); ASPARTATE AMINO TRANSFERASE 18 Units/L (15-37); BLOOD UREA NITROGEN 13 mg/dL (7-18); CALCIUM 9.1 mg/dL (8.5-10.1); CARBON DIOXIDE 31.2 mmol/L (21-32); CHLORIDE 105 mmol/L (98-107); CHOL/HDL RATIO 3.1 (0.0-5.0); CHOLESTEROL 230 mg/dL (0-200); CREATININE 0.78 mg/dL (0.55-1.02); HDL CHOLESTEROL 75 mg/dL (40-60); SODIUM 141 mmol/L (136-145); TOTAL PROTEIN 7.4 g/dL (6.4-8.2); TRIGLYCERIDES 100 mg/dL (0-150); TSH (3RD GENERATION) 0.241 uIU/mL (0.358-3.74); eGFR BLACK RACES > 60 (>60); eGFR NON BLACK RACES > 60 (>60)
== END ==
LOC: LAB 06:57
PROVIDERS: ATTEND Internal Medicine
DX: R53.1 Weakness (principal); E78.4 Other hyperlipidemia
CPT/HCPCS: 36415; 80053; 80061; 82533; 82607; 82746; 84436; 84443; 85025

== ENCOUNTER → 2017-11-20 | Outpatient (CLI) | payer SELFPAY ==
--- NOTE | 2017-11-20 11:17 | CT ---
CLINICAL INDICATION: Screening, family history of cardiac disease COMPARISON: None PROCEDURE: Gated image acquisition through the mediastinum was performed without contrast. Data set w as used for calcium scoring. FINDINGS: Total coronary calcium score is 9 LM: 0 LAD: 7 LCX: 0 RCA: 2 Extracardiac findings: No pathologically enlarged lymph nodes. The visualized aorta is unremarkable. No airspace disease, effusion, or pneumothorax identified. Normal-sized heart. The soft tissues and osseous structures are intact. IMPRESSION: 1. Total calcium score of 9, placing the patient between the 50th and 75th percentile for females of equivalent age. Calcium score implies minimal identifiable plaque. The risk of coronary artery diseas e is very unlikely (less than 10%). Reported By:
== END ==
LOC: RAD 08:55
PROVIDERS: ATTEND Internal Medicine
DX: Z13.6 Encounter for screening for cardiovascular disorders (principal)

== ENCOUNTER → 2018-03-06 | Outpatient (CLI) | payer BC ==
[2018-03-06 08:00] LABS: T4 (THYROXINE) 9.3 ug/dL (4.7-13.3)
== END ==
LOC: LAB 07:23
PROVIDERS: ATTEND Internal Medicine
DX: E03.8 Other specified hypothyroidism (principal)
CPT/HCPCS: 36415; 84436; 84479